=== PATIENT | male | born 1965 | race Caucasian/White ===

== ENCOUNTER 2019-01-16 19:13 | Emergency (ER) | payer OTHER, SELFPAY ==
[2019-01-16 19:18] VITALS: BP 157/97; PULSE 101; RESP 18; TEMP 36.8; O2SAT 95
--- NOTE | 2019-01-16 19:21 | DI.RAD_ITS ---
EXAM: XR ANKLE RT COMPLETE INDICATION: twisted/pain. COMPARISON: No exams were available for comparison TECHNIQUE: 2D digital imaging was performed. FINDINGS: There is soft tissue swelling around the lateral malleolus. There is an oblique fracture seen throug h the medial malleolus extending to the level of the ankle mortise. It is not significantly displaced . The ankle mortise does not appear widened. No talar dome defect or medial malleolar fracture is s een. IMPRESSION: Nondisplaced lateral malleolar fracture.
--- NOTE | 2019-01-16 19:37 | DI.VRAD_ITS ---
PROCEDURE INFORMATION: Exam: XR Right Ankle Exam date and time: 01/16/2019 7:33 PM Clinical history: 53 years old, male; Ankle; Right; Patient HX: Twisted/pain TECHNIQUE: Imaging protocol: XR Right ankle. Views: 3 or more views. COMPARISON: No relevant prior studies available. FINDINGS: Bones/joints: Oblique fracture of the distal right fibular metaphysis with slight 1.5 mm lateral displacement of the distal fragment there is no angulation. No other fractures identified. No blastic or lytic lesions. No periostitis or osteolysis. The ankle mortise joint is well maintained. No joint effusion. No hindfoot coalition. Soft tissues: Moderate lateral and anterior soft tissue swelling at the ankle.. No radiopaque foreign bodies. Other findings: The visualized hindfoot and midfoot are grossly well aligned. IMPRESSION: 1. Oblique fracture of the distal right fibular metaphysis with minimal displacement and no angulation. 2. Overlying moderate soft tissue swelling in the anterolateral ankle. No foreign body. Dictated and Authenticated by: Ye Keenan MD. Ordering:ARCHANA Oviedo MD
--- NOTE | 2019-01-16 19:41 | ED.GENADUL_ITS ---
Discharge Plan Disposition Patient Disposition: HOME Discharge Details Chief Complaint: Orthopedic Clinical Impression: Fracture of distal end of right fibula Primary Care Provider: Adriana Duncan ED Provider: Preet Guillen Home Meds and New Rx's Prescriptions: No Action No Known Home Meds RF: 0 Discharge Instructions Instructions: Leg Fracture (ED) Additional Instructions: X-rays are positive for fracture of the outside of your right ankle. You will need close orthopedic follow-up. You should be getting a call from their office in the next 1 to 2 days. It is very important that you do not place any weight over the right ankle. Continue to use crutches. Keep splint on until reevaluated by orthopedics. Take Tylenol for pain. Ice and elevate the limb for swelling. Return should your pain increases significantly or you develop numbness of the toes. Referrals: Wily Guzman MD [ [facility] STAFF PHYSICIAN] - 3 days Medical Decision Making Patient is a 53-year-old male presenting to the emergency department with right ankle injury. X-rays confirm Ozuna B fracture. Neurovascularly intact. Splint applied. We will follow-up with orthopedics in the next several days for definitive management. Patient educated on crutch walking along with nonweightbearing status. Return precautions provided. HPI General Date/Time Provider Initiated Documentation: 01/16/19 19:40 . HPI Narrative: Patient is a 53-year-old male presenting to the emergency department status post right ankle injury. Patient states that he was walking in [place], slipped on some ice and inverted his right ankle. He immediately felt a pop and had swelling over the area. He denies any numbness or tingling. No knee pain. No foot pain. Related Data Home Medications Medication Instructions Recorded Confirmed Unknown [No Known Home Meds] 01/16/19 01/16/19 Allergies Allergy/AdvReac Type Severity Reaction Status Date / Time No Known Allergies Allergy Unverified 01/16/19 19:22 General Stated Complaint: Orthopedic LISA: 4 Review of Systems Narrative: Review of systems positive for right ankle pain and swelling. No other joint tenderness. No rashes or lesions. No open sores. No back or neck pain. No head injury. No neck pain PFSH Social History Smoking/Tobacco Use Status: Never Alcohol Intake: current Alcohol Intake frequency: a few times a week Drug use: Never Substance use type: does not use Do you feel safe at home: Yes Do you feel safe in your relationship?: Yes Exam Narrative Exam Narrative: Nontoxic-appearing. Alert and oriented x3. Normal respiratory effort. Notable swelling and tenderness along the lateral malleolus. Overlying ecchymosis noted. No proximal fibular tenderness. No knee swelling or effusion. No metatarsal tenderness. Neurovascularly intact. Strong peripheral pulses. Cap refill less than 2 seconds. Course Vital Signs Vital signs: Vital Signs Temperature 36.8 C 01/16/19 19:18 Pulse 101 H 01/16/19 19:18 Respiratory Rate 18 01/16/19 19:18 Blood Pressure 157/97 H 01/16/19 19:18 Pulse Oximetry 95 01/16/19 19:18 Temperature 36.8 C 01/16/19 19:18 Temperature Source Temporal Artery Scan 01/16/19 19:18 Pulse 101 H 01/16/19 19:18 Respiratory Rate 18 01/16/19 19:18 Respiratory Effort Non-Labored 01/16/19 19:18 Blood Pressure 157/97 H 01/16/19 19:18 Blood Pressure Position Sitting 01/16/19 19:18 Pulse Oximetry 95 01/16/19 19:18 Oxygen Delivery Method Room Air 01/16/19 19:18 Oxygen Flow Rate 0 01/16/19 19:18 Pain Level 8 01/16/19 19:18 Comment 01/16/19 19:18 Procedures Orthopedic Splinting/Casting Injury #1: Side: right Lower Extremity Injury Location: ankle Lower Extremity Immobilizer: posterior splint and stirrup splint Other Orthopedic Equipment: crutches
== END 2019-01-16 20:13 | disposition home or self-care (01) ==
PROVIDERS: Emergency Provider Physician Assistant; PCP Nurse Practitioner Gerontology
DX: S82.831A Other fracture of upper and lower end of right fibula, initial encounter for closed fracture (principal); W00.0XXA Fall on same level due to ice and snow, initial encounter
CPT/HCPCS: 27786; 73610

== ENCOUNTER 2019-01-18 08:43 | Outpatient (CLI) | payer OTHER, SELFPAY ==
--- NOTE | 2019-01-18 08:08 | DI.RAD_ITS ---
EXAM: XR ANKLE RT 2V INDICATION: fib fracture. COMPARISON: No exams were available for comparison TECHNIQUE: 2D digital imaging was performed. FINDINGS: Has been no change in the alignment of previously noted oblique fracture through the lateral malleol us. Soft tissue swelling remains present. No definite ankle mortise widening is seen on this on the se routine views. IMPRESSION: No change in lateral malleolar fracture.
== END 2019-01-18 09:03 ==
PROVIDERS: PCP Nurse Practitioner Gerontology; Visit Provider Student in an Organized Health Care Education/Training Program
DX: S82.61XD Displaced fracture of lateral malleolus of right fibula, subsequent encounter for closed fracture with routine healing (principal); M79.89 Other specified soft tissue disorders
CPT/HCPCS: 73600

== ENCOUNTER 2019-03-07 09:43 | Outpatient (CLI) | payer OTHER, SELFPAY ==
--- NOTE | 2019-03-07 15:11 | DI.RAD_ITS ---
EXAM: XR FOOT RT COMPLETE INDICATION: Foot Pain. COMPARISON: No exams were available for comparison TECHNIQUE: 2D digital imaging was performed. FINDINGS: A distal fibular fracture is again noted. No fracture is seen in the foot. There is a tiny heel spu r. There are minimal degenerative changes. IMPRESSION: No acute abnormality.
--- NOTE | 2019-03-07 15:12 | DI.RAD_ITS ---
EXAM: XR ANKLE RT COMPLETE INDICATION: F/U FX. COMPARISON: XR ANKLE RT 2V from 01/18/2019 TECHNIQUE: 2D digital imaging was performed. FINDINGS: There has been no change in the alignment of distal fibular fracture. There is increased callus form ation when compared with the previous exam. There is no ankle mortise widening. IMPRESSION: Healing fracture of the distal fibula.
== END 2019-03-07 10:03 ==
PROVIDERS: Visit Provider Student in an Organized Health Care Education/Training Program
DX: S82.61XD Displaced fracture of lateral malleolus of right fibula, subsequent encounter for closed fracture with routine healing (principal); M79.671 Pain in right foot
CPT/HCPCS: 73610; 73630

== ENCOUNTER 2020-04-02 03:16 | Outpatient (CLI) | payer BC, SELFPAY ==
[2020-04-02 15:54] LABS: HCT 46.9 % (40.0-50.0); HGB 15.4 g/dL (13.5-17.5); MCH 29.3 pg (27.0-33.0); MCHC 32.8 % (32.0-36.0); MCV 89.2 fL (80-95); MPV 9.6 fL (8.0-11.0); Platelet Count 190 10^3/uL (130-400); RBC 5.26 10^6/uL (4.36-5.78); RDW 13.1 % (11.8-14.1); RDW-SD 43.2 fL; WBC 7.53 10^3/uL (4.4-10.8)
[2020-04-02 16:52] LABS: ALT 34 U/L (16-63); AST 24 U/L (15-37); Alkaline Phosphatase 87 U/L (46-116); Anion Gap 7.3 mmol/L (3-11); BUN 18 mg/dL (7-18); Bilirubin, Total 0.4 mg/dL (0.2-1.0); CO2 27.7 mmol/L (21.0-32.0); CREATININE 1.2 mg/dL (0.70-1.30); Calcium 9.2 mg/dL (8.5-10.1); Calculated LDL 101 mg/dL (<100); Chloride 104 mmol/L (98-107); Cholesterol 198 mg/dL (<200); Glucose 104 mg/dL (74-106); HDL Cholesterol 37 mg/dL (40-60); Potassium 4.4 mmol/L (3.5-5.1); Sodium 139 mmol/L (136-145); Total Protein 7.3 g/dL (6.4-8.2); Triglyceride 303 mg/dL (<150)
[2020-04-02 17:34] LABS: Hemoglobin A1C 5.9 % (<5.7)
[2020-04-04 10:19] LABS: Hepatitis C Ab w Rflx HCV PCR Negative (Negative)
== END 2020-04-02 03:17 | disposition home or self-care (01) ==
LOC: LBO 03:16
PROVIDERS: PCP Nurse Practitioner; Visit Provider Nurse Practitioner
DX: E11.9 Type 2 diabetes mellitus without complications (principal); I10 Essential (primary) hypertension; E66.9 Obesity, unspecified; Z13.220 Encounter for screening for lipoid disorders; Z82.49 Family history of ischemic heart disease and other diseases of the circulatory system; Z11.59 Encounter for screening for other viral diseases
CPT/HCPCS: 36415; 80053; 80061; 85027; 86803; 83036

== ENCOUNTER 2020-05-15 01:57 | Outpatient (CLI) | payer BC, SELFPAY ==
[2020-05-15 11:14] LABS: Source Nasal/Nares
[2020-05-15 20:02] LABS: COVID-19 PCR Negative (Negative)
== END 2020-05-15 01:58 | disposition home or self-care (01) ==
LOC: LBO 01:57
PROVIDERS: PCP Nurse Practitioner; Visit Provider Surgery
DX: Z20.822 Contact with and (suspected) exposure to COVID-19 (principal); Z01.818 Encounter for other preprocedural examination
CPT/HCPCS: 87635

== ENCOUNTER 2020-05-17 07:09 | Day surgery (SDC) | payer BC, SELFPAY ==
[2020-05-17 07:20] VITALS: BP 133/96; PULSE 78; RESP 16; TEMP 36.1; O2SAT 96
[2020-05-17] MEDS: Lactated Ringers 1,000 ML 80 ML IV (07:45)
--- NOTE | 2020-05-17 08:06 | BOWEL_PTH ---
PATIENT: Misael Colunga LOC: [facility] U#:[id number] AGE/SX: 54/M ROOM: RE05/17/[address]: Kim Obando : 1965 BED: DIS: 05/17/2020 SPEC #: [id number] RECD: 05/17/20 12:36 STATUS: BRENDON REQ #: [id number] PRANEETH: 05/17/20 08:[address]: Kim Obando DEPT: Surgical Specimen RECD BY: Marlyn Hammond ENTERED: 05/17/20 12:37 SP TYPE: Bowel OTHR DR: Celeste Starr APRN Tissues: 1 - BIOPSY BOWEL Procedures: GROSS AND MICRO LEVEL 4 Comments: [id number]
[2020-05-17 08:55] VITALS: BP 135/85; PULSE 67; RESP 16; TEMP 36.4; O2SAT 93
--- NOTE | 2020-05-17 09:31 | W.PM.DSUDISC ---
Discharge Plan Disposition Patient Disposition: HOME Condition: Good Discharge Details Reason For Visit: colon scope Attending Provider: Kim Obando Primary Care Provider: Celeste Starr Home Meds and New Rx's Prescriptions: Continued amlodipine 5 mg tablet 5 mg PO DAILY Qty: 30 RF: 2 terbinafine HCl 250 mg tablet 250 mg PO DAILY Qty: 90 RF: 0 Discontinued polyethylene glycol 3350 17 gram/dose powder 238 g PO ONCE Qty: 238 RF: 0 bisacodyl [Dulcolax (bisacodyl)] 5 mg tablet,delayed release (DR/EC) 5 mg PO ONCE Qty: 4 RF: 0 Discharge Instructions Additional Instructions: Findings:large polyp -no asa/nsaids x 5 days -Small light meals x24 hours. -No lifting over 20 pounds or strenuous activity x72 hours. Follow up:repeat 3 yrs Please call if you develop: fevers >101.5 Nausea or Vomiting Abdominal pain that is not transient DAY SURGERY UNIT POST COLONOSCOPY INSTRUCTIONS 1. Because there will be medication in your system for the next 24 hours, you may feel a little sleepy. Your coordination will be affected. Therefore: a. Do not drive or operate dangerous equipment for 24 hours. b. Do not drink alcohol beverages for 24 hours (not even beer). c. Plan to go home and rest for the day. 2. Generally there are no restrictions on your activity after a day or so has gone by, but you may feel a bit fatigued for a few days. 3 After you arrive home you may have a light meal and return to a normal diet as you can tolerate it without feeling sick to your stomach. 4. After surgery, you may feel pain or discomfort. This should be only transient, but if it persists please contact your doctor. 5. If there are any questions regarding the findings of your procedure, please feel free to contact your doctor. 6. If you are unable to contact your doctor with a problem, contact the hospital at [phone]. 7. Continue all your regular medications unless directed otherwise. I understand the above instructions and have no questions. Signature of Patient or Responsible Adult Escort Date/Time Name of Responsible Adult Escort Signature of Nurse Date/Time Activity:: see above Diet:: see above Discharge Orders Discharge Orders: Discharge Order (Routine); Ordered 05/17/20 Ordered By: Kim Obando DS: Diagnosis Discharge Diagnosis (1) Adenomatous colon polyp: Status: Acute
--- NOTE | 2020-05-17 09:45 | W.COLOREPORT ---
Date of service: 05/17/20 Time of Service: 09:45 Colonoscopy Report Date of procedure: 05/17/20 Pre-op diagnosis general: CRC screen Post-op diagnosis procedure note: other (polyp) Procedure: hot snare and polypectomy hot forcepts Surgeon: Kim Obando Anesthesia proc note operative: GETA Estimated blood loss (mL): 1 Pathology: other Complications: None Disposition: no change Prep: Miralax/Dulcolax Retraction Time: 15 mins Procedure Description: After informed consent was obtained the patient was taken to the procedure room and placed in a left decubitous position. Monitors were applied and a time out was done. The patients name, date of , procedure, allergies to medications and metal in their body was reviewed. The patient was then sedated. Once sedated and comfortable a rectal exam was done. External exam was normal. Internal exam revealed a normal sphincter tone and no palpable masses. The scope was then introduced and retrofelexed. no internal hemorrhoids were identified. The scope was then advanced to the cecum w/out difficulty. The TI and appendiceal orifice were identified. The prep was good. The scope was then slowly retracted over 15 minutes back into the rectum. Polyps were removed at there is a 1 cm polyp on a pedunculated stalk that is removed at 30 cm with a hot snare. There were 2 small pieces of the stalk ,removed by hot biopsy forcep. All specimen is retrieved and there is no bleeding noted. The defect is closed with a clip.. The scope was removed and the patient was woken up and taken back to Same day surgery in stable condition. The patient tolerated the procedure well and there were no immediate complications. Follow up: The patient should follow up in 3-5 years unless they develop changes in bowel habits or other new gastrointestinal complaints.
== END 2020-05-17 09:47 | disposition home or self-care (01) ==
PROVIDERS: PCP Nurse Practitioner; Visit Provider Surgery
PROC: 0DJD8ZZ Inspection of Lower Intestinal Tract, Via Natural or Artificial Opening Endoscopic (ICD-10-PCS; CPT 45378; principal; 2020-05-17 08:30)
DX: Z12.11 Encounter for screening for malignant neoplasm of colon (principal); D12.6 Benign neoplasm of colon, unspecified; Z80.0 Family history of malignant neoplasm of digestive organs; I10 Essential (primary) hypertension
CPT/HCPCS: 45385; 45384; 88305; J2001

== ENCOUNTER 2020-06-03 09:24 | Outpatient (CLI) | payer BC, SELFPAY ==
[2020-06-04 16:49] LABS: COVID-19 RT-PCR UVMMC Result Positive (Negative)
== END 2020-06-03 09:25 | disposition home or self-care (01) ==
PROVIDERS: PCP Nurse Practitioner; Visit Provider Nurse Practitioner
DX: Z20.822 Contact with and (suspected) exposure to COVID-19 (principal)
CPT/HCPCS: U0003

== ENCOUNTER 2021-06-04 02:52 | Outpatient (CLI) | payer BC, SELFPAY ==
[2021-06-04 09:32] LABS: ALT 27 U/L (16-63); AST 18 U/L (15-37); Alkaline Phosphatase 83 U/L (46-116); Anion Gap 12.3 mmol/L (3-11); BUN 15 mg/dL (7-18); Bilirubin, Total 0.6 mg/dL (0.2-1.0); CO2 24.7 mmol/L (21.0-32.0); CREATININE 1.1 mg/dL (0.70-1.30); Calcium 8.6 mg/dL (8.5-10.1); Calculated LDL 102 mg/dL (<100); Chloride 104 mmol/L (98-107); Cholesterol 174 mg/dL (<200); Glucose 109 mg/dL (74-106); HDL Cholesterol 46 mg/dL (40-60); Potassium 4.5 mmol/L (3.5-5.1); Sodium 141 mmol/L (136-145); Triglyceride 134 mg/dL (<150)
== END 2021-06-04 02:53 | disposition home or self-care (01) ==
LOC: LBO 02:52
PROVIDERS: PCP Nurse Practitioner; Visit Provider Nurse Practitioner
DX: I10 Essential (primary) hypertension (principal); E11.9 Type 2 diabetes mellitus without complications; R73.03 Prediabetes; E66.9 Obesity, unspecified
CPT/HCPCS: 36415; 80053; 80061; 83036

== ENCOUNTER 2023-05-24 07:35 | Day surgery (SDC) | payer BC, SELFPAY ==
--- NOTE | 2023-05-23 11:37 | W.PM.DSUDISC ---
Date of service: 05/24/23 Time of Service: 09:38 Discharge Plan Disposition Patient Disposition: Home Condition: Good Discharge Details Reason For Visit: screening colonoscopy Attending Provider: Gatito Rothman Primary Care Provider: Celeste Starr Home Meds and New Rx's Prescriptions: Continued cetirizine [Zyrtec] 10 mg tablet 10 mg PO HS PRN (Reason: allergy symptoms) Qty: 90 3RF losartan 50 mg tablet 50 mg PO DAILY Qty: 90 3RF Discontinued bisacodyl [Dulcolax (bisacodyl)] 5 mg tablet,delayed release (DR/EC) 5 mg PO ONCE Qty: 4 0RF Rx Instructions: Take per colonoscopy instructions provided by ordering providers office polyethylene glycol 3350 17 gram/dose powder 17 g PO ONCE Qty: 238 0RF Rx Instructions: Take per colonoscopy instructions provided by ordering providers office Discharge Instructions Instructions: Colorectal Polyps (GEN) Additional Instructions: Misael, we were able to complete your colonoscopy today without any difficulty. I did find a total of 3 polyps. All were quite small, and I removed them all completely. I will take week or 2 for me to get the results on the polyp analysis, but once I have them the office will be in touch regarding timing of your next colonoscopy. If you have any questions in the meantime, please do not hesitate to call or ask at any point. 1. If tolerated, consume a soft, low fiber diet for 1-2 days. 2[address] Do not drive, drink alcohol, operate machinery, make critical decisions, or do activities that require coordination or balance for 24 hours. 3. Because air was put into your colon during the procedure, expelling air from your rectum (passing gas or farting) is normal. 4. You may not have a bowel movement for 1-3 days because of the colonoscopy prep. This is normal. 5. Go directly to the emergency room if you notice any of the following: Develop chills (warm to touch), or if you have a thermometer and your temperature is above 101 Difficulty breathing or difficultly swallowing Persistent vomiting Severe abdominal pain, other than gas cramps Severe chest pain Black, tarry stools Any bleeding ? exceeding one tablespoon 6. Call your physician if the site where your intravenous was started becomes red, swollen, painful, and warm to touch. 7. Your physician has reviewed your pre-procedure medications. Please continue to take those medications as previously ordered. You will be given specific information/education regarding any changes to your medications before leaving. Activity:: Activity as Tolerated Diet:: As Tolerated Discharge Orders Discharge Orders: Discharge Order (Routine); Ordered 05/23/23 Ordered By: Gatito Rothman DS: Diagnosis Discharge Diagnosis (1) Encounter for screening colonoscopy: Status: Acute Asessment and Plan: Follow-up on polypectomy results
--- NOTE | 2023-05-23 11:39 | W.COLOREPORT ---
Date of service: 05/24/23 Time of Service: 09:40 Colonoscopy Report Date of procedure: 05/24/23 Pre-op diagnosis general: screening colonoscopy Post-op diagnosis procedure note: other (Colon polyps) Procedure: Colonoscopy with polypectomy Surgeon: Gatito Rothman Anesthesia Type: General:No Airway Estimated blood loss (mL): 10 Pathology: other (0.25 cm flat polyps at 80 cm and 50 cm, 0.5 cm flat polyp at 20 cm) Complications: None Disposition: same day Indications: Misael is a 57 year old man with a family history of colon cancer and a personal history of adenomatous polyps who needs his next screening colonoscopy Prep: Miralax/Dulcolax Procedure Start Time: 09:13 Procedure End Time: 09:28 Retraction Time: 12 Findings: 0.25 cm flat polyps at 80 cm and 50 cm, 0.5 cm flat polyp at 20 cm Procedure Description: After the induction of monitored anesthetic care, and with the patient in left lateral decubitus position, I began by performing an external anorectal exam.? Perineum and skin were normal, as was the anal verge.? There was no evidence of external hemorrhoids.? Next, I performed a digital rectal exam.? I did not appreciate any abnormal findings.? Next, I advanced a colonoscope into the rectal vault.? I performed retroflexion.? This appeared normal.? Using insufflation, I then advanced the colonoscope beyond the rectal folds and into the sigmoid colon before advancing towards the cecum.? The scope was noted to be in the cecum by identification of the ileocecal valve and appendiceal orifice.? I then began withdrawing the colonoscope using repeated irrigation as necessary for full evaluation of the colonic mucosa. Around 80 cm from the anal verge I identified a 0.25 cm polyp. ?It appeared flat in character. ?I was able to remove this with a cold forcep polypectomy. ?I examined the site, and there was minimal bleeding. ?Once this was completed, I continued to withdraw the scope and examine the remainder of the colonic mucosa. I found another flat polyp at 50 cm from the anal verge. This was 0.25 cm in the removed with cold forceps. Finally, I found another polyp at 20 cm from the anal verge, this was 0.5 cm in size, and I removed this with cold forceps as well. There were no issues at the polypectomy sites. Once the scope was withdrawn to the level of the rectum, great care was taken to examine portions of the rectal folds.? Finally, the scope was withdrawn and the patient was brought to the same-day surgery recovery unit as the anesthetic wore off. ?The findings and instructions were shared with the patient prior to discharge. [place] Bowel Prep [place] Bowel Prep Right Colon: 3 Left Colon: 3 Transverse Colon: 3 Total Score: 9
[2023-05-24 07:40] VITALS: BP 122/89; PULSE 83; RESP 20; TEMP 36.2; O2SAT 94
[2023-05-24] MEDS: Lactated Ringers 1,000 ML 80 ML IV (08:08)
--- NOTE | 2023-05-24 08:23 | W.ANESPRE ---
General Info Date of Service Date Performed: 05/24/23 Height: 5 ft 9 in Weight: 118.2 kg Body Mass Index (BMI): 38.5 Surgical Procedure: Operation Date: 05/24/23 09:05 Proposed Procedure Side Surgeon p Colonoscopy Gatito Rothman MD Meds Allergies and Home Medications Allergies Allergy/AdvReac Type Severity Reaction Status Date / Time lisinopril AdvReac Mild cough Verified 05/24/23 07:52 Home Medication Medication Instructions Recorded cetirizine 10 mg tablet (Zyrtec) 10 mg PO HS PRN allergy symptoms 12/16/22 #90 tabs losartan 50 mg tablet 50 mg PO DAILY #90 tabs 12/16/22 Current Visit Medications: Current Medications Generic Name Dose Route Start Last Admin Trade Name Freq PRN Reason Stop Dose Admin Hyoscyamine Sulfate 0.125 mg 05/23/23 12:02 Hyoscyamine 0.125 Mg Sl/Oral/Chew SL 06/22/23 12:01 DIRECTED PRN Ringer's Solution 1,000 mls @ 80 mls/hr 05/24/23 06:00 05/24/23 08:08 IV 06/20/23 23:59 80 mls/hr INFUSION BRANDON Administration IV Miscellaneous Supplies 1 each 05/24/23 06:00 Iv Access IV 06/20/23 23:59 DIRECTED BRANDON Ondansetron HCl 4 mg 05/23/23 12:02 Ondansetron 4 Mg/2 Ml Vial IVP 06/22/23 12:01 Q4H PRN PRN Nausea / Vomiting Sodium Chloride 0 ml 05/24/23 06:00 Normal Saline Flush 10 Ml Syr IV 06/20/23 23:59 PRN PRN Sodium Chloride 0 ml 05/24/23 06:00 Normal Saline 10 Ml Vial IJ 06/20/23 23:59 DIRECTED PRN Sterile Water 0 ml 05/24/23 06:00 Water,Injection,Sterile 10 Ml Vial IJ 06/20/23 23:59 DIRECTED PRN PFSH Active Problems Active Problems: Problem Status Onset Code Encounter for screening colonoscopy Z12.11 Rash R21 Obesity E66.9 Tubular adenoma D36.9 Adenomatous colon polyp D12.6 Pre-diabetes R73.03 Toenail fungus B35.1 Onychomycosis of great toe B35.1 Chewing tobacco nicotine dependence F17.220 Daytime somnolence R40.0 Snoring R06.83 Hypertension I10 Routine medical exam Z00.00 Parent refuses immunizations Z28.82 Encounter for HCV screening test for low risk patient Z11.59 Seborrheic keratoses L82.1 Family history of diabetes mellitus Z83.3 Colon cancer screening Z12.11 Screening for cholesterol level Z13.220 Family history of heart disease Z82.49 Elevated blood pressure reading in office with diagnosis of hypertension I10 Encounter to establish care Z76.89 Fracture of lateral malleolus at syndesmosis ~01/16/19 S82.63XA Surgical History Surgical History History of colonoscopy with polypectomy (~05/17/20) History of ankle surgery (~2011) L Tobacco Smoking/Tobacco Use Status: Current every day Tobacco Type: smokeless tobacco Smokeless tobacco user: chewing tobacco (1 can q5 days) Passive smoking exposure: No Second hand exposure: Yes (as child) Alcohol Alcohol Intake: current Alcohol intake frequency: a few times a month Substance Use Substance use: Never Substance use type: does not use Vital Signs and Lab Results Vital Signs Most Recent Vital Signs in EMR: Most Recent Vital Signs Temp Pulse Resp BP Pulse Ox 36.2 C L 83 20 122/89 94 05/24/23 07:40 05/24/23 07:40 05/24/23 07:40 05/24/23 07:40 05/24/23 07:40 Lab Results Blood Type / Crossmatch: No Data to Display Complete Blood Count: No Data to Display Complete Metabolic Panel: No Data to Display Liver Function Panel: No Data to Display Coagulation Panel: No Data to Display Cardiac Panel: No Data to Display Arterial Blood Gas: No Data to Display Venous Blood Gas: No Data to Display Pancreas Panel: No Data to Display Thyroid Panel: No Data to Display Infectious Disease: No Data to Display Blood Cultures: No Data to Display Toxicology Panel: No Data to Display Imaging and Studies Imaging and Studies Study information below may be from another EMR and interpreted by another provider. Please see original notes in EMR for more complete details. EKG Summary: Sinus rhythm...normal P axis, V-rate 60- [address]-T changes 03/2020 Anesthesia Assessment and Plan Anesthesia History Personal History: No History of Anesthesia Complications Family History: No Family History of Anesthesia Complications Exercise Tolerance Exercise Tolerance: Metabolic Equivalents>4 Pertinent Negatives Pertinent Negatives: No Symptoms of GERD Cardiac & Pulmonary Exam Cardiac Exam: Normal S1/S2 Heart Sounds Pulmonary Exam: Clear Bilateral Breath Sounds Implantable Cardiac Device Does patient have a Pacemaker or an ICD?: No Airway Exam Known Difficult Airway: No Mallampati Class: 2 Mouth Opening: Normal (> 3cm) Thyromental Distance: Greater than 3 cm Neck Range of Motion: Full ROM Neck Circumference: Thick Teeth Condition: Normal Dentition ASA Classification ASA Score: ASA 3 Emergency Case?: No NPO Status NPO Status: NPO Clears >2 hours, Solids >8 hours Anesthesia Plan Resuscitation Status: Full Code Anesthesia Technique: General Anesthesia Airway Planned: Natural Airway Monitors Used: Standard Monitors
[2023-05-24 08:26] VITALS: BMI 38.5
--- NOTE | 2023-05-24 09:19 | BOWEL_PTH ---
PATIENT: Misael Colunga LOC: [facility] U#:[id number] AGE/SX: 57/M ROOM: RE05/24/[address]: Gatito Rothman MD : 1965 BED: DIS: 05/24/2023 SPEC #: [id number] RECD: 05/24/23 12:10 STATUS: BRENDON RE #: [id number] PRANEETH: 05/24/23 09:[address]: Gatito Rothman DEPT: Surgical Specimen RECD BY: Marlyn Hammond ENTERED: 05/24/23 12:11 SP TYPE: Bowel OTHR DR: Celeste Starr APRN Tissues: 1 - BIOPSY BOWEL 2 - BIOPSY BOWEL 3 - BIOPSY BOWEL Procedures: GROSS AND MICRO LEVEL 4 Comments: [id number]
[2023-05-24 09:37] VITALS: BP 104/91; PULSE 104; RESP 16; TEMP 36.7; O2SAT 95
[2023-05-24 10:06] VITALS: BP 124/93; PULSE 77; RESP 16; TEMP 36.5; O2SAT 95
--- NOTE | 2023-05-24 10:13 | W.ANESPOSTOP ---
Postoperative Evaluation Date, Time and Location Date Performed: 05/24/23 Time Performed: 09:50 Patient Location: Day Surgery Unit Vital Signs Most Recent Imported Vital Signs: Most Recent Vital Signs Temp Pulse Resp BP Pulse Ox 36.5 C 77 16 124/93 H 95 05/24/23 10:06 05/24/23 10:06 05/24/23 10:06 05/24/23 10:06 05/24/23 10:06 Pain Score Most Recent Pain Score: Most Recent Pain Score Pain Level 0 05/24/23 10:06 Assessment Mental Status: Awake (Alert & Oriented to Patient Baseline) Airway and Respiratory Function: Patent airway with normal (patient baseline) respiratory exam Cardiovascular Function: Hemodynamically Stable Hydration Status: Adequately Hydrated Nausea & Vomiting: No Nausea or Vomiting Pain: Pt. Denies Any Pain Peripheral Nerve Block: Patient did not receive a nerve block
== END 2023-05-24 10:16 | disposition home or self-care (01) ==
LOC: SUR 07:36
PROVIDERS: PCP Nurse Practitioner; Visit Provider Surgery
PROC: 0DJD8ZZ Inspection of Lower Intestinal Tract, Via Natural or Artificial Opening Endoscopic (ICD-10-PCS; CPT 45378; principal; 2023-05-24 09:00)
DX: Z12.11 Encounter for screening for malignant neoplasm of colon (principal); D12.4 Benign neoplasm of descending colon; I10 Essential (primary) hypertension; F17.220 Nicotine dependence, chewing tobacco, uncomplicated; Z86.010 Personal history of colon polyps; Z80.0 Family history of malignant neoplasm of digestive organs
CPT/HCPCS: 45380; 88305; J2704

== ENCOUNTER 2024-02-02 02:39 | Outpatient (CLI) | payer BC, SELFPAY ==
[2024-02-02 07:06] LABS: Abs Immature Grans 0.01 10^3/uL (0.0-0.06); Absolute Basophil Count 0.06 10^3/uL (0.0-0.2); Absolute Eosinophil Count 0.19 10^3/uL (0.0-0.7); Absolute Lymphocyte Count 1.87 10^3/uL (1.2-3.4); Absolute Monocyte Count 0.69 10^3/uL (0.1-0.8); Absolute Neutrophil Count 2.88 10^3/uL (1.2-6.7); Basophils % 1.1 %; Eosinophils % 3.3 %; HCT 48.5 % (40.0-50.0); HGB 15.7 g/dL (13.5-17.5); Immature Grans % 0.2 %; Lymphocytes % 32.8 %; MCH 29.2 pg (27.0-33.0); MCHC 32.4 % (32.0-36.0); MCV 90 fL (80-95); MPV 8.9 fL (8.0-11.0); Monocytes % 12.1 %; Neutrophils % 50.5 %; Platelet Count 159 10^3/uL (130-400); RBC 5.37 10^6/uL (4.36-5.78); RDW 13.1 % (11.8-14.1)
[2024-02-02 07:30] LABS: ALT 23 U/L (16-63); AST 15 U/L (15-37); Albumin 3.7 g/dL (3.4-5.0); Alkaline Phosphatase 83 U/L (46-116); Anion Gap 6.1 mmol/L (3-11); BUN 18 mg/dL (7-18); Bilirubin, Total 0.81 mg/dL (0.2-1.0); CO2 31.9 mmol/L (21.0-32.0); CREATININE 1.4 mg/dL (0.70-1.30); Calcium 8.9 mg/dL (8.5-10.1); Calculated LDL 86 mg/dL (<100); Chloride 106 mmol/L (98-107); Cholesterol 156 mg/dL (<200); Estimated GFR 57.54 (mL/min/1.73m2); Glucose 94 mg/dL (74-106); HDL Cholesterol 45 mg/dL (40-60); Potassium 4.3 mmol/L (3.5-5.1); Sodium 144 mmol/L (136-145); Total Protein 7.3 g/dL (6.4-8.2); Triglyceride 128 mg/dL (<150)
== END 2024-02-02 02:40 | disposition home or self-care (01) ==
LOC: LBO 02:39
PROVIDERS: PCP Nurse Practitioner; Visit Provider Nurse Practitioner
DX: R73.03 Prediabetes (principal); I10 Essential (primary) hypertension; E66.9 Obesity, unspecified; Z13.220 Encounter for screening for lipoid disorders; Z00.00 Encounter for general adult medical examination without abnormal findings
CPT/HCPCS: 36415; 80053; 80061; 85025

== ENCOUNTER 2024-05-03 03:29 | Outpatient (CLI) | payer BC, SELFPAY ==
[2024-05-03 07:39] LABS: CREATININE 1.4 mg/dL (0.70-1.30); Estimated GFR 57.54 (mL/min/1.73m2)
== END 2024-05-03 03:30 | disposition home or self-care (01) ==
LOC: LBO 03:29
PROVIDERS: PCP Nurse Practitioner; Visit Provider Nurse Practitioner
DX: R94.4 Abnormal results of kidney function studies (principal); R73.03 Prediabetes; E66.9 Obesity, unspecified
CPT/HCPCS: 36415; 82565